=== PATIENT | female | born 2000 | race African-American/Black ===

== ENCOUNTER 2022-03-14 08:27 | Emergency (ER) | payer MEDICAID ==
[~2022-03-14] VITALS: Ht 172.7 cm; Wt 100.0 kg
[~2022-03-14 08:27] MED LIST: ONDA4TAB5 PO
[2022-03-14] MEDS ORDERED: KETOROLAC 60MG/2ML VIAL IM ONE (10:30)
[2022-03-14 10:35] VITALS: BP 155/102
== END 2022-03-14 10:42 | disposition home or self-care (01) ==
LOC: ER 08:39
DX: S09.8XXA Other specified injuries of head, initial encounter (principal); W22.8XXA Striking against or struck by other objects, initial encounter; Y93.89 Activity, other specified; Y92.89 Other specified places as the place of occurrence of the external cause; Y99.8 Other external cause status
CPT/HCPCS: 70450; 70486; 73130; 96372; 99284; J1885